=== PATIENT | female | born 1970 | race Caucasian/White ===

== ENCOUNTER 2017-09-15 11:00 | Outpatient (CLI) | payer OTHER ==
[~2017-09-15 11:00] MED LIST: PRENATAL TABLE1 EACH
== END 2017-09-15 14:37 | disposition home or self-care (01) ==
LOC: MAMO-SONO 11:00
DX: N60.11 Diffuse cystic mastopathy of right breast (principal); Z12.31 Encounter for screening mammogram for malignant neoplasm of breast

== ENCOUNTER 2019-02-12 14:25 | Outpatient (CLI) | payer OTHER | END 2019-02-12 14:48 | disposition home or self-care (01) | LOC: SONOGRAMA 14:25 | DX: N91.0 Primary amenorrhea (principal) ==

== ENCOUNTER 2020-09-29 08:51 | Outpatient (CLI) | payer OTHER | END 2020-09-29 08:57 | disposition home or self-care (01) | LOC: NUCLEAR 08:51 | DX: M79.621 Pain in right upper arm (principal); M79.622 Pain in left upper arm ==

== ENCOUNTER 2021-10-03 11:06 | Emergency (ER) | payer OTHER ==
[~2021-10-03] VITALS: Ht 152.4 cm; Wt 90.7 kg
== END 2021-10-03 16:34 ==
LOC: ER 11:06
DX: B34.9 Viral infection, unspecified (principal); R51.9 Headache, unspecified; Z20.822 Contact with and (suspected) exposure to COVID-19; Z91.013 Allergy to seafood

== ENCOUNTER 2021-10-13 08:21 | Emergency (ER) | payer OTHER ==
[~2021-10-13] VITALS: Ht 152.4 cm; Wt 90.7 kg
[2021-10-13] MEDS ORDERED: GLUMETZA500 MG (08:31)
== END 2021-10-13 13:33 | disposition home or self-care (01) ==
LOC: ER 08:21
DX: M94.0 Chondrocostal junction syndrome [Tietze] (principal)